=== PATIENT | male | born 1985 | race Caucasian/White ===

== ENCOUNTER 2017-03-07 00:10 | Emergency (ER) | payer BC ==
[2017-03-07] MEDS ORDERED: Albuterol/Ipratropium 3.0-0.5 MG/3 ML Neb Soln NEB ONE ×2 (00:13)
[2017-03-07] MEDS ORDERED: methylPREDNISolone Sodium Succinate 125 MG/2 ML SDV IVPUSH ONE (00:13)
[2017-03-07] MEDS ORDERED: Sodium Chloride 0.9% 1,000 ML IV SCH (00:15)
--- NOTE | 2017-03-07 00:17 | EDM.PDOC ---
ED HPI GENERAL MEDICAL PROBLEM - General Chief Complaint: Respiratory Problem Stated Complaint: ASTHMA Time Seen by Provider: 03/07/17 00:17 Source of Information: Reports: Patient - History of Present Illness INITIAL COMMENTS - FREE TEXT/NARRATIVE: HISTORY AND PHYSICAL: History of present illness: []Patient with history of asthma and hypertension presents short of breath and wheeze, he is been out of medication for both blood pressure and asthma over the last couple months and is now establish care after moving to [place]. No fever nausea vomiting chills sweats no chest pain headache dizziness or palpitation no bowel or urine symptoms Review of systems: As per history of present illness and below otherwise all systems reviewed and negative. Past medical history: As per history of present illness and as reviewed below otherwise noncontributory. Surgical history: As per history of present illness and as reviewed below otherwise noncontributory. Social history: No reported history of drug or alcohol abuse. Family history: As per history of present illness and as reviewed below otherwise noncontributory. Physical exam: HEENT: Atraumatic, normocephalic, pupils reactive, negative for conjunctival pallor or scleral icterus, mucous membranes moist, throat clear, neck supple, nontender, trachea midline. Lungs: Clear to auscultation, breath sounds equal bilaterally, chest nontender. Post DuoNeb and Solu-Medrol Heart: S1S2, regular, negative for clicks, rubs, or JVD. Abdomen: Soft, nondistended, nontender. Negative for masses or hepatosplenomegaly. Negative for costovertebral tenderness. Pelvis: Stable nontender. Genitourinary: Deferred. Rectal: Deferred. Extremities: Atraumatic, negative for cords or calf pain. Neurovascular unremarkable. Neuro: Awake, alert, oriented. Cranial nerves II through XII unremarkable. Cerebellum unremarkable. Motor and sensory unremarkable throughout. Exam nonfocal. Diagnostics: []CBC, CMP, troponin Chest one view Therapeutics: []DuoNeb Solu-Medrol 125 mg IV Nitroglycerin 0.4 sublingual for blood pressure Hydrochlorothiazide 25 mg by mouth daily #30 no refill Lisinopril 20 mg by mouth daily #30 no refill Medrol Dosepak HFA Impression: []Asthma exacerbation Hypertension emergency resolved Medication noncompliance Definitive disposition and diagnosis as appropriate pending reevaluation and review of above. chest Pain Score (Numeric/FACES): 5 - Related Data Allergies Allergy/AdvReac Type Severity Reaction Status Date / Time No Known Allergies Allergy Verified 03/07/17 00:14 Home Meds: Home Meds Hydrochlorothiazide 10 mg PO BEDTIME 03/07/17 [History] Lisinopril 40 mg PO DAILY 03/07/17 [History] ED ROS GENERAL - Review of Systems Review Of Systems: ROS reveals no pertinent complaints other than HPI. ED EXAM, GENERAL - Physical Exam Exam: See Below Course - Vital Signs Last Recorded V/S: Last Vital Signs Temp 36.6 C 03/07/17 00:16 Pulse 101 H 03/07/17 01:57 Resp 20 03/07/17 01:57 BP 168/109 H 03/07/17 01:57 Pulse Ox 95 03/07/17 01:57 - Orders/Labs/Meds Orders: Active Orders 24 hr Category Date Time Status EKG 12 Lead [EKG Documentation Completion] [RC] STAT Care 03/07/17 00:25 Active RT Aerosol Therapy [RC] ASDIRECTED Care 03/07/17 00:13 Inactive RT Aerosol Therapy [RC] ASDIRECTED Care 03/07/17 00:14 Active Chest 1V Frontal [CR] Stat Exams 03/07/17 00:18 Taken UA W/MICROSCOPIC [URIN] Stat Lab 03/07/17 00:56 Uncollected Nitroglycerin [Nitrostat] Med 03/07/17 00:14 Active 0.4 mg SL Q5M PRN Sodium Chloride 0.9% [Normal Saline] 1,000 ml Med 03/07/17 00:15 Active IV STAT Medication Orders Sodium Chloride (Normal Saline) 1,000 mls @ 125 mls/hr IV STAT DEWAYNE Last Admin: 03/07/17 00:53 Dose: 125 mls/hr Nitroglycerin (Nitrostat) 0.4 mg SL Q5M PRN PRN Reason: Chest Pain Last Admin: 03/07/17 01:28 Dose: 0.4 mg Admin: 03/07/17 00:51 Dose: 0.4 mg Labs: Laboratory Tests 03/07/17 03/07/17 Range/Units 01:08 01:08 WBC 9.69 (4.0-11.0) K/uL RBC 6.01 H (4.50-5.90) M/uL Hgb 16.7 (13.0-17.0) g/dL Hct 48.4 (38.0-50.0) % MCV 80.5 (80.0-98.0) fL MCH 27.8 (27.0-32.0) pg MCHC 34.5 (31.0-37.0) g/dL RDW Std Deviation 44.3 (28.0-62.0) fl RDW Coeff of Gemma 15 (11.0-15.0) % Plt Count 265 (150-400) K/uL MPV 10.50 (7.40-12.00) fL Neut % (Auto) 51.7 (48.0-80.0) % Lymph % (Auto) 34.6 (16.0-40.0) % [place] % (Auto) 7.8 (0.0-15.0) % Eos % (Auto) 5.4 (0.0-7.0) % Baso % (Auto) 0.5 (0.0-1.5) % Neut # (Auto) 5.0 (1.4-5.7) K/uL Lymph # (Auto) 3.4 H (0.6-2.4) K/uL [place] # (Auto) 0.8 (0.0-0.8) K/uL Eos # (Auto) 0.5 (0.0-0.7) K/uL Baso # (Auto) 0.1 (0.0-0.1) K/uL Sodium 142 (136-146) mmol/L Potassium 3.8 (3.5-5.1) mmol/L Chloride 111 H (98-110) mmol/L Carbon Dioxide 21 (21-31) mmol/L BUN 13 (6.0-23.0) mg/dL Creatinine 0.9 (0.6-1.5) mg/dL Est Cr Clr Drug Dosing 140.83 mL/min Estimated GFR (MDRD) > 60.0 ml/min Glucose 128 H (60-110) mg/dL Calcium 9.0 (8.8-10.8) mg/dL Total Bilirubin 0.4 (0.1-1.5) mg/dL AST 44 H (5-40) IU/L ALT 96 H (8-54) IU/L Alkaline Phosphatase 88 (40-150) Total Protein 6.8 (6.0-8.0) g/dL Albumin 4.0 (3.5-5.0) g/dL Globulin 2.8 (2.0-3.5) g/dL Albumin/Globulin Ratio 1.4 (1.3-2.8) Meds: Medications Generic Name Dose Route Start Last Admin Trade Name Johnny PRN Reason Stop Dose Admin Sodium Chloride 1,000 mls @ 125 mls/hr 03/07/17 00:15 03/07/17 00:53 Normal Saline IV 125 mls/hr STAT DEWAYNE Administration Nitroglycerin 0.4 mg 03/07/17 00:14 03/07/17 01:28 Nitrostat SL 0.4 mg Q5M PRN Administration Chest Pain Discontinued Medications Generic Name Dose Route Start Last Admin Trade Name Johnny PRN Reason Stop Dose Admin Albuterol/Ipratropium 3 ml 03/07/17 00:13 03/07/17 00:10 Duoneb 3.0-0.5 Mg/3 Ml NEB 03/07/17 00:43 3 ml ONETIME ONE Administration Albuterol/Ipratropium 3 ml 03/07/17 00:13 03/07/17 00:44 Duoneb 3.0-0.5 Mg/3 Ml NEB 03/07/17 00:14 Not Given ONETIME ONE Hydrochlorothiazide 25 mg 03/07/17 01:49 Hydrochlorothiazide PO 03/07/17 01:50 ONETIME ONE Lisinopril 10 mg 03/07/17 01:49 Prinivil PO 03/07/17 01:50 ONETIME ONE Methylprednisolone Sodium Succinate 125 mg 03/07/17 00:13 03/07/17 00:44 Solu-Medrol IVPUSH 03/07/17 00:14 125 mg ONETIME ONE Administration Nitroglycerin Confirm 03/07/17 00:33 03/07/17 00:44 Nitrostat Administered 03/07/17 00:34 Not Given Dose 0.4 mg .ROUTE .STK-MED ONE Departure - Departure Time of Disposition: 01:58 Disposition: Home, Self-Care 01 Condition: Good Clinical Impression: Exacerbation of asthma, Hypertension, Noncompliance with medication regimen - Discharge Information Referrals: PCP,None [Primary Care Provider] - Forms: ED Department Discharge Additional Instructions: Establish primary care and follow-up in 2 weeks Recommend recheck liver function Return if symptoms persist or worsen Medications as directed You can reach primary care in number below: [facility] - Primary Care [address] [place] [id number] The following information is given to patients seen in the emergency department who are being discharged to home. This information is to outline your options for follow-up care. We provide all patients seen in our emergency department with a follow-up referral. The need for follow-up, as well as the timing and circumstances, are variable depending upon the specifics of your emergency department visit. If you don't have a primary care physician on staff, we will provide you with a referral. We always advise you to contact your personal physician following an emergency department visit to inform them of the circumstance of the visit and for follow-up with them and/or the need for any referrals to a consulting specialist. The emergency department will also refer you to a specialist when appropriate. This referral assures that you have the opportunity for follow-up care with a specialist. All of these measure are taken in an effort to provide you with optimal care, which includes your follow-up. Under all circumstances we always encourage you to contact your private physician who remains a resource for coordinating your care. When calling for follow-up care, please make the office aware that this follow-up is from your recent emergency room visit. If for any reason you are refused follow-up, please contact the [facility] emergency department at and asked to speak to the emergency department charge nurse. - My Orders Last 24 Hours: My Active Orders 03/07/17 00:13 RT Aerosol Therapy [RC] ASDIRECTED 03/07/17 00:14 RT Aerosol Therapy [RC] ASDIRECTED Nitroglycerin [Nitrostat] 0.4 mg SL Q5M PRN 03/07/17 00:15 Sodium Chloride 0.9% [Normal Saline] 1,000 ml IV STAT 03/07/17 00:18 Chest 1V Frontal [CR] Stat 03/07/17 00:25 EKG 12 Lead [EKG Documentation Completion] [RC] STAT 03/07/17 00:56 UA W/MICROSCOPIC [URIN] Stat - Assessment/Plan Last 24 Hours: My Active Orders 03/07/17 00:13 RT Aerosol Therapy [RC] ASDIRECTED 03/07/17 00:14 RT Aerosol Therapy [RC] ASDIRECTED Nitroglycerin [Nitrostat] 0.4 mg SL Q5M PRN 03/07/17 00:15 Sodium Chloride 0.9% [Normal Saline] 1,000 ml IV STAT 03/07/17 00:18 Chest 1V Frontal [CR] Stat 03/07/17 00:25 EKG 12 Lead [EKG Documentation Completion] [RC] STAT 03/07/17 00:56 UA W/MICROSCOPIC [URIN] Stat
[2017-03-07] MEDS ORDERED: Nitroglycerin 0.4 MG Tab.SL ONE (00:33)
[2017-03-07] MEDS: Nitroglycerin 0.4 MG Tab.SL SL PRN ×2 (00:51→01:28)
[2017-03-07 01:34] LABS: CHLORIDE,CL 111 mmol/L (98-110); SODIUM,NA 142 mmol/L (136-146)
[2017-03-07] MEDS ORDERED: Lisinopril 10 MG Tab PO ONE (01:49)
[2017-03-07] MEDS ORDERED: Hydrochlorothiazide 25 MG Tab PO ONE (01:49)
[2017-03-07 03:38] VITALS: BP 166/110
--- NOTE | 2017-03-07 09:45 | CR ---
EXAM DATE: 03/07/17 PATIENT'S AGE: 31 Patient: GILBERT OWENS Facility: [place], [place] Site . Site : 1985 Study: XRay Chest [id number]/1/2017 12:36:54 AM Ordering Physician: Sarahy Gonzalez Final Report: INDICATION: sudden onset Shortness of breath TECHNIQUE: Chest radiograph 1 view COMPARISON: None FINDINGS: The study is moderately limited by body habitus. Cardiovascular and mediastinum: The cardiac silhouette is normal in appearance and size. Mediastinum is within normal limits. Lungs and pleural space: Both lungs are unremarkable in appearance. No sign of pleural effusion. No pneumothorax is seen. Bones and soft tissues: No significant findings. IMPRESSION: 1. No acute cardiopulmonary disease seen. Dictated by: Favian Kumar MD @ 03/07/2017 00:37:46 (Electronic Signature) Report Signed by Proxy. [facility]
== END 2017-03-07 02:19 | disposition home or self-care (01) ==
LOC: MW.ED 00:10
DX: J45.901 Unspecified asthma with (acute) exacerbation (principal); I10 Essential (primary) hypertension; Z91.14 Patient's other noncompliance with medication regimen
CPT/HCPCS: 36415; 71010; 80053; 85025; 93005; 96361; 96374; 99285; A9270; J2930; J7040; 99284